=== PATIENT | female | born 1965 | race Caucasian/White ===

== ENCOUNTER 2018-08-28 15:23 | Inpatient (IN) ==
[2018-08-28] MEDS ORDERED: Ondansetron 4 MG/2 ML VIAL IVP PRN ×2 (17:02→22:21)
[2018-08-28] MEDS ORDERED: OXYCODONE Oral CONC 10 MG/0.5 ML ORAL.SYG SL PRN (17:02)
--- NOTE | 2018-08-28 17:16 | Acute Care Surgery H&P ---
Date of Encounter: 08/28/18 Time of Encounter: 17:09 Assessment and Plan (1) Symptomatic cholelithiasis Current Visit: Yes Status: Acute 52F with acute cholecystitis; NPO IVF IV abx OR today for cholecystectomy The assessment and plan as outlined above was discussed with the patient and/or family members who expressed understanding and agreement. All questions were answered. History of Present Illness Chief complaint: abdominal pain HPI: Ms. Byrne is a 52 year old female PMH significant obesity, depression, IBS who presents with a 1 month history of worsening post prandial abdominal pain. the pain was located at the epigastric region and RUQ with radiation to her back with associated nausea and vomiting. Over the course of the last 3 weeks it has progressed. NO associated fevers, chest pain, nor shortness of breath. She does report subjective chills. IN addition she rates the pain 8/10. She was evaluated in the ED which demonstrated cholelithiasis, no evidence of gallbladder wall thickening nor pericholecystic fluid. She was direct admitted from clinic for a cholecystectomy. Past Med Surg Social Fam HX - Past Medical History Medical history: fibromyalgia, migraine, thyroid disease, other Additional medical history: IBS Psychiatric history: depression - Past Surgical History Surgical History: , cataract Additional surgical history: tubal ligation, cataract removed right eye - Social History Smoking Status: Former smoker Alcohol use: none Drug use: none - Additional Family History Additional family history: non contributory Medications and Allergies Paroxetine HCl [Paxil] 20 mg PO DAILY 08/26/18 [History] traZODone [TraZODone] 150 mg PO HS 08/26/18 [History] Hyoscyamine SL [Levsin SL] 0.125 mg SL Q4HR PRN #12 tab.subl 08/27/18 [Rx] Allergy/AdvReac Type Severity Reaction Status Date / Time Sulfa (Sulfonamide Allergy Swelling Verified 08/26/18 21:31 Antibiotics) of Lip/Tongue/Throat nitroglycerin AdvReac See Verified 08/26/18 21:31 Comments prochlorperazine AdvReac Irritable Verified 08/26/18 21:31 [From Compazine] Review of Systems All systems PM: 12 point ROS negative besides HPI findings General Surgery Exam Initial Vital Signs Temp Pulse Resp BP Pulse Ox 98.6 F 77 18 169/102 95 08/28/18 15:47 08/28/18 15:47 08/28/18 15:47 08/28/18 15:47 08/28/18 15:47 - General physical appearance no distress - Eyes other (no scleral icterus), normal ocular movement - ENT normocephalic - Neck trachea midline, no lymphadectomy - Respiratory normal expansion, normal respiratory effort - Cardiovascular Cardiovascular exam: Present: RRR - Abdomen Abdomen general surgery: Present: soft, tender ((+) mckeon's sign) Abdominal Tenderness: Present: RUQ - Rectum Rectum: Present: normal sphincter tone - Integumentary Integumentary general surgery: Present: warm and dry, no abnormal pigmentation - Neurologic Present: CN 2-12 grossly intact - Musculoskeletal Present: normal posture - Psychiatric Psychiatric general surgery: Present: A&Ox3 Results - Labs All other labs normal.
--- NOTE | 2018-08-28 17:24 | Anesthesia Evaluation PreOp ---
Date of Encounter: 08/28/18 Time of Encounter: 17:22 - Past History Planned Operation: Robotic Lap. 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 HX Other Medical History: Denies Any Significant HX, Thyroid (Hypo), Other (fibromyalgia, migraine, thyroid disease) Anesthesia History: No Prior Anesthetic Complications, Past Anesthesia ( tubal ligation, cataract removed right eye,c/s) : No Alcohol Use: none Drug use: none Medications and Allergies Paroxetine HCl [Paxil] 20 mg PO DAILY 08/26/18 [History] traZODone [TraZODone] 150 mg PO HS 08/26/18 [History] Hyoscyamine SL [Levsin SL] 0.125 mg SL Q4HR PRN #12 tab.subl 08/27/18 [Rx] Allergy/AdvReac Type Severity Reaction Status Date / Time Sulfa (Sulfonamide Allergy Swelling Verified 08/26/18 21:31 Antibiotics) of Lip/Tongue/Throat nitroglycerin AdvReac See Verified 08/26/18 21:31 Comments prochlorperazine AdvReac Irritable Verified 08/26/18 21:31 [From Compazine] - Meds/Allergy Pre-op Review Medications Reviewed: Yes Allergies Reviewed: Yes Beta Blockers on Current Med List: No Anesthesia Results - Labs Laboratory Tests 08/26/18 08/26/18 22:03 22:03 WBC 10.5 Hgb 13.0 Hct 39.5 Plt Count 482 H Sodium 139 Potassium 3.3 L Chloride 105 Carbon Dioxide 24 BUN 12 Creatinine 0.74 Anesthesia Exam O2 Sat Height 1.56 m Weight 109.9 kg O2 Sat by Pulse Oximetry 95 Vital Signs Temp Pulse Resp BP Pulse Ox 98.6 F 77 18 169/102 95 08/28/18 15:47 08/28/18 15:47 08/28/18 15:47 08/28/18 15:47 08/28/18 15:47 NPO (# of Hours): > 8 hrs Pain Scale: 0 Pain Scale Used: Numeric (1 - 10) - HEENT Pupil (Motor): Pupils equal, EOMI Mallampati: III Teeth: Normal Oral Opening: Greater than 3 - DRYING FRAME OPERATOR LOC: Oriented DRYING FRAME OPERATOR Motor: Normal RUE, Normal LUE, Normal RLE, Normal LLE, Normal Face DRYING FRAME OPERATOR Sensory: Normal: RUE, LUE, RLE, LLE, Face - Cardiac Rhythm: Regular Murmur: None JVD: No Carotid Bruit: No - Pulmonary Breath Sounds: bilateral Clear Respiratory Effort: Symmetrical Anesthesia Assess/Plan ASA Score: 3 Level of consciousness: Cooperative Anesthetic Plan: General Autologous Blood: Yes Monitoring Plan: Standard Monitors Recovery Plan: PACU
[2018-08-28] MEDS ORDERED: Isovue-300 50 ML VIAL ONE (18:00)
[2018-08-28] MEDS ORDERED: *HR* FentaNYL (PF) 100 MCG/2 ML VIAL ONE ×2 (18:04→19:22)
[2018-08-28] MEDS ORDERED: *HR* Propofol 200 MG/20 ML VIAL IVP ONE (18:05)
[2018-08-28] MEDS ORDERED: *HR* Rocuronium Bromide 50 MG/5 ML VIAL ONE (18:06)
[2018-08-28] MEDS ORDERED: Lidocaine -MPF 2% 2 ML VIAL ONE ×2 (18:06→18:21)
[2018-08-28] MEDS ORDERED: *HR* Succinylcholine 200 MG/10 ML VIAL IVP ONE (18:06)
[2018-08-28] MEDS ORDERED: Dexamethasone 4 MG/ML VIAL ONE (18:06)
[2018-08-28] MEDS ORDERED: Ondansetron 4 MG/2 ML VIAL ONE (18:06)
[2018-08-28] MEDS ORDERED: CefOXitin 2,000 MG VIAL ONE (19:08)
[2018-08-28] MEDS ORDERED: *HR* Labetalol 20 MG/4 ML SYRINGE IVP ONE (19:37)
[2018-08-28] MEDS ORDERED: Neostigmine Methylsulfate 3 MG/3 ML SYRINGE ONE (20:07)
[2018-08-28] MEDS ORDERED: *HR* HYDROmorphone (PF) 1 MG/ML SYRINGE IVP PRN (20:12)
[2018-08-28] MEDS ORDERED: Ondansetron 4 MG/2 ML VIAL IVP ONE (20:12)
[2018-08-28] MEDS ORDERED: *HR* Promethazine 25 MG/ML VIAL IVP PRN (20:12)
[2018-08-28] MEDS ORDERED: *HR* Labetalol 20 MG/4 ML SYRINGE IVP PRN (20:12)
[2018-08-28] MEDS ORDERED: *HR* OxyCODONE Immed Rel 5 MG TABLET PO PRN (20:12)
[2018-08-28] MEDS ORDERED: *HR* Promethazine 25 MG/ML VIAL ONE (20:33)
--- NOTE | 2018-08-28 21:13 | Operative Note ---
Date of procedure: 08/28/18 Pre-op diagnosis: acute cholecystitis Post-op diagnosis: same Procedure: symptomatic cholelithiasis Implants: none Complications: none Anesthesia: GETA Local Anesthetics: 0.5% Sensorcaine HCL SubQ (cc) Surgeon: Ben Carmichael Was there an assistant professor of physics present: Yes Pollution Control Chemist: Daisy Rivas Estimated blood loss (cc): 5 Specimen: gallbladder and contents Condition: stable Disposition: PACU Procedure in Detail: The patient was brought into the operating room suite and was placed in the supine position. Mechanical DVT prophylaxis was applied. A time-in was conducted. The patient underwent smooth induction of anesthesia. Preoperative antibiotics were given. The patient was prepped and draped in the usual fashion. A time-out was held identifying the correct patient, pathology, and procedure. Everyone was in agreement and we began the procedure. Incision to Dissection I started by creating a 12mm supraumbilical incision. Via open Francis technique I did enter into the abdomen. I inserted the 12mm trocar followed by the 30 degree camera, ensured that I did not cause intraabdominal injury upon entry, and quickly identified the gallbladder. I created a 5mm incisions one handbreadth to the left and right of the umbilical incision and an assistant professor of physics port along the R anterior axillary line. I then docked the robot in the usual fashion. Using laparoscopic graspers I managed to elevate the gallbladder above the liver. At the Console I grasp the edge of the gallbladder to retract laterally. Using the [place] instrument as well as the hook-electrocautery, I dissected out the cystic duct and the cystic artery. I excised the posterior tissue to visualize the liver. I was able to clearly visualize the critical view of safety. Critical view of Safety to Excison of the gallbladder I then clipped both structures using plastic clips, two on the stay side, one on the specimen side. Using robotic scissors, I cut between the clip on the specimen side and the first clip on the stay side. Then using tension and counter-tension, I used the electrocautery to excise the gallbladder off of the liver bed. Before complete excision, I evaluated the liver bed to ensure there 1.) there was no bleeding, 2. No excessive bile leakage, and 3.) to evaluate my clips. There was no bleeding, bile leakage, and the clips were all the way across both duct and artery. Removal of gallbladder to Closure After undocking the robot, I inserted the endocatch bag into the umbilical port. I placed the specimen into the bag and retrieved it through the umbilical port. i then irrgiated the liver bed and above the liver before suctioning both irrigation fluid and air. I removed the 5mm ports, turned off the insufllation, then removed the 12mm umbilical port. I then close the umbilical fascia a vicryl suture in a figure of 8 fashion. All incisions were closed with interrupted 4-0 monocryl and sealed with dermabond. The patient tolerated the procedure well and went back to PACU in stable condition.
[2018-08-28] MEDS ORDERED: 0.9 % Sodium Chloride 1,000 ML IVC SCH (22:21)
--- NOTE | 2018-08-28 23:11 | Anesthesia Evaluation Post Op ---
Date of Encounter: 08/28/18 Time of Encounter: 23:11 - Vital Signs Vital Signs: Vital Signs/O2 Sat, Most Current Temp Pulse Resp BP Pulse Ox 98.8 F 87 22 172/83 98 08/28/18 21:18 08/28/18 22:00 08/28/18 22:00 08/28/18 22:00 08/28/18 22:00 - Lungs Lungs: Clear Ascult./Percussion - Airway Airway: Non-obstructed - Cardiovascular Regular Rate - Mental Status Mental Status: Alert & Oriented, Answers Appropriately - Pain Pain Scale: 0 Pain Scale used: Numeric (1 - 10) - Nausea Vomiting Nausea Vomiting: Not Present - Hydration Hydration: Ice chips, Has not voided - Discharge PostOp Status: Transfer Patient to floor
[2018-08-29] MEDS ORDERED: Piperacillin/Tazobactam 3.375 GM in 0.9 % Sodium Chloride Mini Bag 100 ML IVPB SCH
[2018-08-29] MEDS: OXYCODONE Oral CONC 10 MG/0.5 ML ORAL.SYG SL PRN ×2 (00:51→05:38)
[2018-08-29] MEDS: Acetaminophen 325 MG TABLET PO PRN ×2 (02:54→11:12)
[2018-08-29] MEDS ORDERED: *HR* HYDROmorphone (PF) 1 MG/ML SYRINGE IVP ONE (03:34)
[2018-08-29] MEDS ORDERED: traZODone 50 MG TABLET PO SCH ×2 (03:45→21:00)
[2018-08-29] MEDS ORDERED: Ondansetron 4 MG/2 ML VIAL IVP ONE (04:34)
[2018-08-29] MEDS: *HR* Heparin 5,000 UNIT/ML VIAL SQ SCH ×2 (05:10→14:41)
[2018-08-29] MEDS ORDERED: Scopolamine Patch 1.5 MG PATCH.TD72 TD ONE (08:36)
[2018-08-29] MEDS ORDERED: Hyoscyamine SL 0.125 MG TAB.SUBL SL PRN (08:53)
[2018-08-29] MEDS ORDERED: *HR* OxyCODONE/APAP 5/325 TABLET PO PRN (08:56)
[2018-08-29] MEDS ORDERED: Ketorolac 30 MG/ML VIAL IVP ONE (08:56)
[2018-08-29] MEDS ORDERED: Ondansetron 4 MG/2 ML VIAL IVP PRN (10:47)
[2018-08-29] MEDS ORDERED: Acetaminophen IV 500 MG/50 ML INFUS..BTL IVPB ONE (11:22)
--- NOTE | 2018-08-29 11:23 | Discharge Summary ---
<Jazlyn Cuevas - Last Filed: 08/29/18 14:40> Orders not resulted at time of discharge: Pending orders 08/28/18 19:39 Surgical Pathology [PTH] Routine Date of Encounter: 08/29/18 Time of Encounter: 11:23 - Discharge Diagnosis (1) Symptomatic cholelithiasis Priority: Primary Status: Resolved General Surgery Exam Initial Vital Signs Temp Pulse Resp BP Pulse Ox 37.0 C 77 18 169/102 95 08/28/18 15:47 08/28/18 15:47 08/28/18 15:47 08/28/18 15:47 08/28/18 15:47 - General physical appearance no distress - Neck trachea midline - Respiratory normal expansion, normal respiratory effort - Cardiovascular Cardiovascular exam: Present: RRR - Abdomen Abdomen general surgery: Present: bowel sounds present, soft, tender (Expected postoperative) - Incision Incision: Present: clean and dry, intact - Integumentary Integumentary general surgery: Present: warm and dry, no abnormal pigmentation - Neurologic Present: CN 2-12 grossly intact, normal coordination, normal sensation - Musculoskeletal Present: normal gait, normal posture - Psychiatric Psychiatric general surgery: Present: A&Ox3, other (RN x2 report witnessing patient "sticking fingers in throat to gag herself." pt denies) - Hospital Course Hospital course: Ms. Byrne is a 52 year old female who was admitted on 08/28/2018 for symptomatic cholelithiasis. She was taken to the operating room where she underwent an uncomplicated laparoscopic cholecystectomy. Her postoperative course was complicated by nausea which was treated with a scopolamine patch and Zofran. He is ambulating and voiding without difficulty, tolerating a diet without further nausea or vomiting, vital signs are stable, and she is afebrile. We will begin discharge planning to home with a follow-up in approximately2-3 weeks. - Time Spent with Patient Total time spent providing and/or coordinating discharge services: - Discharge Medications Prescriptions: New Docusate Sodium [Colace] 100 mg PO BID PRN #30 capsule PRN Reason: Contstipation Ibuprofen 800 mg PO Q8H PRN #30 tablet PRN Reason: Postsurgical pain OxyCODONE/APAP 5/325 [Percocet 5/325 MG] 1 each PO Q6HR PRN 7 Days #28 tablet PRN Reason: Pain Ondansetron ODT [Zofran ODT] 4 mg SL Q4HR PRN #30 tab.rapdis PRN Reason: Nausea Continued Paroxetine HCl [Paxil] 20 mg PO DAILY traZODone [TraZODone] 150 mg PO HS Hyoscyamine SL [Levsin Sl] 0.125 mg SL Q4HR PRN #12 tab.subl PRN Reason: Pain Home Medications: Paroxetine HCl [Paxil] 20 mg PO DAILY 08/26/18 [History] traZODone [TraZODone] 150 mg PO HS 08/26/18 [History] Hyoscyamine SL [Levsin Sl] 0.125 mg SL Q4HR PRN #12 tab.subl 08/27/18 [Rx] Docusate Sodium [Colace] 100 mg PO BID PRN #30 capsule 08/29/18 [Rx] Ibuprofen 800 mg PO Q8H PRN #30 tablet 08/29/18 [Rx] Ondansetron ODT [Zofran ODT] 4 mg SL Q4HR PRN #30 tab.rapdis 08/29/18 [Rx] OxyCODONE/APAP 5/325 [Percocet 5/325 MG] 1 each PO Q6HR PRN 7 Days #28 tablet 08/29/18 [Rx] Allergies/Adverse Reactions: Allergy/AdvReac Type Severity Reaction Status Date / Time Sulfa (Sulfonamide Allergy Swelling Verified 08/26/18 21:31 Antibiotics) of Lip/Tongue/Throat nitroglycerin AdvReac See Verified 08/26/18 21:31 Comments prochlorperazine AdvReac Irritable Verified 08/26/18 21:31 [From Compazine] Date of admission: 08/29/18 00:55 Consults: 08/28/18 16:27 Consult to Nutrition [CONS] Routine Comment: MST 5 Consulting Provider: NUTRITION Reason for Dietary Consult: MST Score Discharging clinician: Donny Cuevas) Anticipated date of discharge: 08/29/18 - Patient Status Disposition: Home, Self-Care Functional capacity at discharge: independent ambulation Overall status at discharge: patient is progressing back to baseline - Discharge Instructions Instructions: Low Fat Diet (DC), Laparoscopic Cholecystectomy (DC) Follow Up With: NONE,PCP [Primary Care Provider] - Donny Scott [Partnered Physician] - 09/17/18 8:30 am Additional Instructions: General Surgical Discharge Instructions 1. No pushing, pulling, or lifting greater than 15 lbs for 2-4 weeks (depending upon procedure). 2. You may shower beginning today, but no tub baths, soaking, or swimming for 2 weeks. 3. You may resume driving when you are off narcotics and are safe to react in a car. 4. Take ibuprofen every 8 hours for discomfort. If this does not relieve discomfort, you may take the as needed Percocet. Take narcotics as directed. Do not take more narcotics then directed and do not share your narcotics with any other person. Do not drink alcohol while on narcotics. 5. Take stool softeners (Colace) or a water based laxative (Miralax) while taking narcotics. You may hold for loose stools. 6. Report any fevers greater than 100.5F, increase abdominal discomfort, drainage that looks like pus, increased redness or pain at the surgical site, or any vomiting. 7. Report any pain in the calves, shortness of breath, or rapid heartbeat. 8. Follow-up in the office as directed. 9. If you were prescribed antibiotics, do not stop them without talking to your provider. - Diet and Activity Activity: increase activity as tolerated Diet: advance to your usual diet <Donny Scott - Last Filed: 08/29/18 16:42> Orders not resulted at time of discharge: Pending orders 08/28/18 19:39 Surgical Pathology [PTH] Routine Date of Encounter: 08/29/18 General Surgery Exam Initial Vital Signs Temp Pulse Resp BP Pulse Ox 98.6 F 77 18 169/102 95 08/28/18 15:47 08/28/18 15:47 08/28/18 15:47 08/28/18 15:47 08/28/18 15:47 - Hospital Course Hospital course: Ms. Byrne is a 52 year old female - Time Spent with Patient Total time spent providing and/or coordinating discharge services: Date of admission: 08/29/18 00:55 Primary care physician: PCP NONE Consults: 08/28/18 16:27 Consult to Nutrition [CONS] Routine Comment: MST 5 Consulting Provider: NUTRITION Reason for Dietary Consult: MST Score - Attending Attestation I have personally performed a face to face evaluation on this patient. I have reviewed and agree with the care plan. History and Exam by me shows: Pt is POD#1 lap cristopher and her condition is satisfactory for DC to home. F/U as advised in [facility] clinic.
[2018-08-29] MEDS ORDERED: Metoclopramide 10 MG/2 ML VIAL IVP SCH (12:00)
[2018-08-29 14:54] VITALS: BP 168/94
== END 2018-08-29 15:47 | disposition home or self-care (01) | DRG 418 ==
LOC: 3ANU
PROVIDERS: ADMIT Surgery; ATTEND Surgery